=== PATIENT | female | born 1990 | race African-American/Black ===

== ENCOUNTER 2019-02-22 23:55 | Emergency (ER) | payer SELFPAY ==
--- NOTE | 2019-02-25 01:07 | EKG ---
Test Reason : Blood Pressure : / mmHG Vent. Rate : 099 BPM Atrial Rate : 099 BPM P-R Int : 148 ms QRS Dur : 074 ms QT Int : 374 ms P-R-T Axes : 034 004 003 degrees QTc Int : 479 ms Normal sinus rhythm Voltage criteria for left ventricular hypertrophy Abnormal ECG Confirmed by RAJESH KAISER ([id number]), proposal editor DELPHINE BARLOW ([id number]) on 02/25/2019 1:06:50 AM Referred By: Confirmed By:RAJESH KAISER
== END 2019-02-23 01:49 | disposition home or self-care (01) ==
LOC: ERS 23:55
DX: R00.2 Palpitations (principal)
CPT/HCPCS: 93005